=== PATIENT | female | born 1995 | race Caucasian/White ===

== ENCOUNTER 2018-09-26 18:14 | Emergency (ER) | payer BC ==
[~2018-09-26] VITALS: Ht 152.4 cm; Wt 81.8 kg
[2018-09-26] MEDS ORDERED: IBUPROFEN 800 MG TABLET PO ONE (19:15)
[2018-09-26 20:53] VITALS: BP 130/68
== END 2018-09-26 21:48 | disposition home or self-care (01) ==
LOC: EMS 18:16
DX: S13.4XXA Sprain of ligaments of cervical spine, initial encounter (principal); V49.9XXA Car occupant (driver) (passenger) injured in unspecified traffic accident, initial encounter; Y93.89 Activity, other specified; Y92.89 Other specified places as the place of occurrence of the external cause; Y99.8 Other external cause status
CPT/HCPCS: 72040